=== PATIENT | female | born 1955 | race Caucasian/White ===

== ENCOUNTER 2022-05-22 17:14 | Emergency (ER) | payer MEDICARE ==
[~2022-05-22 17:14] MED LIST: Lactated Ringer's 1,000 ML BAG ONE
[2022-05-22 18:38] LABS: INR-International Normal Ratio 2.1; Prothrombin Time 24.7 sec (12.0-14.7)
[2022-05-22 18:40] LABS: PTT 105.2 sec (22.9-36.1)
[2022-05-22 18:41] LABS: Anisocytosis SLIGHT = 6-15 cells (100X) (0-5/hpf); Band 6 % (5-11); Eosinophils 2 % (0-10); Hemoglobin 12.5 g/dL (12.0-16.0); Hypochromia SLIGHT = 6-15 cells (100X) (0-5/hpf); Lymphocytes 13 % (21-51); MDiff Complete? YES; Mean Corpuscular HGB CONC 32.6 g/dL (32.0-36.0); Mean Corpuscular Hemoglobin 29.9 pg (27.0-31.0); Mean Corpuscular Volume 91.8 fl (78.0-98.0); Mean Platelet Volume 11.7 fL (7.4-10.4); Monocytes 8 % (0-10); Neutrophil 71 % (42-75); Platelet Count 264 10x3/uL (130-400); Platelet Morphology Comment Appears Adequate; RBC Distribution Width 15.2 % (11.5-14.5); Red Blood Cell (RBC) Count 4.17 mill/uL (4.20-5.40)
[2022-05-22 18:50] LABS: ALT (SGPT) 16 U/L (8-55); AST (SGOT) 22 U/L (5-34); Albumin 3.6 g/dL (3.4-4.8); Alkaline Phosphatase 121 U/L (40-110); Anion Gap 20 mmol/L (10-20); BUN (Urea Nitrogen) 46 mg/dL (9.8-20.1); Bilirubin, Total 1.6 mg/dL (0.2-1.2); Calc. Creatinine Clearance 0 mL/min (70-130); Calcium 9.9 mg/dL (7.8-10.44); Carbon Dioxide 26 mmol/L (23-31); Chloride 86 mmol/L (98-107); Estimated GFR 14; Globulin 4.4 g/dL (2.4-3.5); Glucose 136 mg/dL (80-115); Lipase 49 U/L (8-78); Magnesium 1.7 mg/dL (1.6-2.6); Potassium 3.7 mmol/L (3.5-5.1); Sodium 128 mmol/L (136-145)
[2022-05-22 19:03] LABS: Bilirubin Moderate (Negative); Blood, Urine Negative (Negative); Clarity Slightly Cloudy (Clear); Glucose, Urine (Dipstick) 100 mg/dL (Negative); Ketone, Urine 15 mg/dL (Negative); Leukocyte Moderate (Negative); Nitrite Negative (Negative); Protein, Urine (Dipstick) 100 mg/dL (Neg-Trace); Specific Gravity, Urine 1.025 (1.005-1.030)
[2022-05-22 19:04] LABS: Bacteria/HPF 3+ HPF (None Seen); RBC/HPF 0-3 HPF (0-3); WBC/HPF Greater Than 50 HPF (0-3)
[2022-05-22] MEDS ORDERED: Sodium Chloride 0.9% 0 ML ONE (19:27)
[2022-05-22] MEDS ORDERED: Sodium Chloride 0.9% 250 ML 250 ML ONE (19:27)
[2022-05-22] MEDS ORDERED: Azithromycin 500 MG VIAL ONE (19:27)
[2022-05-22] MEDS ORDERED: Meropenem 1 GM VIAL ONE (19:27)
[2022-05-22] MEDS ORDERED: Sodium Chloride 0.9% 100 ML ONE (19:28)
[2022-05-22 19:52] LABS: SARS-CoV-2 NAA Rapid Test Not Detected (NotDetected)
[2022-05-22] MEDS ORDERED: Sodium Chloride 0.9% 500 ML ONE (20:45)
[2022-05-22 21:02] LABS: Lactic Acid 1.8 mmol/L (0.5-2.2)
[2022-05-22 22:16] LABS: CKMB 0.8 ng/mL (0-6.6)
[2022-05-22] MEDS ORDERED: Aspirin 325 MG TAB ONE (22:33)
== END 2022-05-23 00:14 | disposition short-term general hospital (02) ==
LOC: MADERS 17:14
DX: A41.9 Sepsis, unspecified organism (principal); R65.20 Severe sepsis without septic shock; N17.9 Acute kidney failure, unspecified; D68.9 Coagulation defect, unspecified; R77.8 Other specified abnormalities of plasma proteins; E87.1 Hypo-osmolality and hyponatremia; R94.31 Abnormal electrocardiogram [ECG] [EKG]; J18.9 Pneumonia, unspecified organism; N39.0 Urinary tract infection, site not specified; Z20.822 Contact with and (suspected) exposure to COVID-19; J44.9 Chronic obstructive pulmonary disease, unspecified; Z87.891 Personal history of nicotine dependence; Z79.899 Other long term (current) drug therapy
CPT/HCPCS: 36415; 51701; 71045; 74176; 80053; 81003; 81015; 82553; 83605; 83690; 83735; 84484; 85025; 85610; 85730; 87040; 87077; 87081; 87086; 87186; 87430; 93005; 94760; 96361; 96365; 96367; J0456; J1956; J2185; J7030; J7050; J7120

== ENCOUNTER 2022-09-04 | Emergency (ER) | payer MEDICARE ==
[2022-09-04] MEDS ORDERED: Azithromycin 500 MG VIAL ONE (01:26)
[2022-09-04] MEDS ORDERED: methylPREDNISolone Sod Succ/PF 125 MG/2 ML VIAL ONE (01:27)
[2022-09-04] MEDS ORDERED: Sodium Chloride 0.9% 250 ML 250 ML ONE (01:27)
[2022-09-04] MEDS ORDERED: Oxymetazoline HCl 0.05% (30 ML BOT) ONE (01:28)
[2022-09-04] MEDS ORDERED: Sodium Chloride 0.9% 1,000 ML ONE ×2 (01:29→04:45)
[2022-09-04] MEDS ORDERED: cefTRIAXone\\ROCEPHIN 2 GM VIAL ONE (02:20)
[2022-09-04 02:58] LABS: ALT (SGPT) 16 U/L (8-55); AST (SGOT) 25 U/L (5-34); Albumin 3.8 g/dL (3.4-4.8); Alkaline Phosphatase 65 U/L (40-110); Anion Gap 14 mmol/L (10-20); BUN (Urea Nitrogen) 21 mg/dL (9.8-20.1); Bilirubin, Total 1.7 mg/dL (0.2-1.2); Calc. Creatinine Clearance 0 mL/min (70-130); Calcium 9.5 mg/dL (7.8-10.44); Carbon Dioxide 27 mmol/L (23-31); Chloride 95 mmol/L (98-107); Estimated GFR 34; Globulin 3.4 g/dL (2.4-3.5); Glucose 123 mg/dL (80-115); Protein, Total 7.2 g/dL (5.8-8.1); Sodium 133 mmol/L (136-145)
[2022-09-04 03:00] LABS: Band 28 % (5-11); Hemoglobin 12.8 g/dL (12.0-16.0); Lymphocytes 8 % (21-51); MDiff Complete? YES; Mean Corpuscular HGB CONC 33.1 g/dL (32.0-36.0); Mean Corpuscular Hemoglobin 29.9 pg (27.0-31.0); Mean Corpuscular Volume 90.3 fl (78.0-98.0); Mean Platelet Volume 8.3 fL (7.4-10.4); Monocytes 11 % (0-10); Neutrophil 53 % (42-75); Platelet Count 175 10x3/uL (130-400); RBC Distribution Width 14.3 % (11.5-14.5); RBC Morphology Normal; Red Blood Cell (RBC) Count 4.29 mill/uL (4.20-5.40); White Blood Cell (WBC) Count 4.1 10x3/uL (4.8-10.8)
[2022-09-04] MEDS ORDERED: Prochlorperazine 10 MG/2 ML VIAL ONE (04:12)
[2022-09-04] MEDS ORDERED: Potassium Chloride 20 MEQ TAB ONE (04:12)
[2022-09-04 04:38] LABS: INR-International Normal Ratio 1.3; Prothrombin Time 16.9 sec (12.0-14.7)
[2022-09-04 04:40] LABS: PTT 75.6 sec (22.9-36.1)
[2022-09-04 05:38] LABS: Bilirubin Small (Negative); Blood, Urine Negative (Negative); Clarity Clear (Clear); Glucose, Urine (Dipstick) Negative (Negative); Ketone, Urine 15 mg/dL (Negative); Leukocyte Negative (Negative); Nitrite Negative (Negative); Protein, Urine (Dipstick) 100 mg/dL (Neg-Trace); Specific Gravity, Urine 1.025 (1.005-1.030)
[2022-09-04 05:49] LABS: Bacteria/HPF Rare-Few HPF (None Seen); Mucous/LPF Rare LPF (<2+); RBC/HPF None Seen HPF (0-3); Transitional Epithelial 0-3 HPF (None Seen)
[2022-09-04 09:11] LABS: Magnesium 1.7 mg/dL (1.6-2.6)
== END 2022-09-04 12:50 | disposition short-term general hospital (02) ==
LOC: MADERS
DX: A41.89 Other specified sepsis (principal); U07.1 COVID-19; J12.82 Pneumonia due to coronavirus disease 2019; J44.1 Chronic obstructive pulmonary disease with (acute) exacerbation; R00.0 Tachycardia, unspecified; I48.91 Unspecified atrial fibrillation; E11.9 Type 2 diabetes mellitus without complications; Z87.891 Personal history of nicotine dependence; Z79.4 Long term (current) use of insulin; Z79.899 Other long term (current) drug therapy
CPT/HCPCS: 71046; 83605; 83735; 83880; 85379; 85610; 85730; 87040; 87086; 93005; 94760; 96361; 96365; 96375; 99285; J0456; 80053; 81003; 81015; 84443; 85025; J0696; J0780; J2930; J7050